=== PATIENT | female | born 1985 | race Caucasian/White ===

== ENCOUNTER 2016-05-28 17:19 | Emergency (ER) | payer OTHER ==
[~2016-05-28] VITALS: Ht 162.6 cm; Wt 60.8 kg
[~2016-05-28 17:19] MED LIST: ORTHO TRI-CYCLE1 TA2 PO
[2016-05-28 17:56] VITALS: BP 149/88
[2016-05-28] MEDS ORDERED: ORTHO TRI-CYCL1 EAC1 PO (17:59)
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
[2016-05-28] MEDS ORDERED: AUGMENTIN 875-1 EACH PO (18:10)
== END 2016-05-28 18:35 ==
LOC: ERH 17:19
DX: S61.451A Open bite of right hand, initial encounter (principal); Y04.1XXA Assault by human bite, initial encounter